=== PATIENT | female | born 1980 | race Caucasian/White ===

== ENCOUNTER 2021-04-15 06:26 | Emergency (ER) | payer OTHER ==
[2021-04-15] MEDS ORDERED: Sodium Chloride 0.9% 1,000 ML IV ONE (06:30)
[2021-04-15] MEDS ORDERED: Ondansetron 4 MG/2 ML SDV IVPUSH ONE (06:30)
--- NOTE | 2021-04-15 07:01 | EDM.PDOC ---
"ED HPI GENERAL MEDICAL PROBLEM - General Chief Complaint: Gastrointestinal Problem Stated Complaint: BLOATED STOMACH / VOMITING Time Seen by Provider: 04/15/21 07:01 Source of Information: Reports: Patient, Old Records, RN, RN Notes Reviewed History Limitations: Reports: No Limitations - History of Present Illness INITIAL COMMENTS - FREE TEXT/NARRATIVE: Pt presents to ER from home by POV with c/o onset of abdominal pain and cramping about 5 days ago. Pt initially thought that she was constipated, but as the pain increased she also thought it might be related to the endometriosis that was found to be on her bowel. Yesterday the pain increased and she began to have nausea and vomiting. Today her abdomen feels bloated and distended. Pt is worried about a bowel obstruction. She still hasn't had a BM for the past 5 days. Denies fever, chills, diarrhea, flank pain, or dysuria. Onset: Gradual Duration: Day(s): (5), Getting Worse Location: Reports: Abdomen Quality: Reports: Ache, Other (Cramping) Severity: Severe Improves with: Reports: None Worsens with: Reports: None Associated Symptoms: Reports: No Other Symptoms Abdomen Pain Score (Numeric/FACES): 5 - Related Data Allergies Allergy/AdvReac Type Severity Reaction Status Date / Time levofloxacin [From Levaquin] Allergy Vomiting Verified 04/15/21 06:54 Penicillins Allergy Anaphylactic Verified 04/15/21 06:54 Shock Home Meds: Home Meds . [No Known Home Meds] 04/15/21 [History] Past Medical History DERRICK HAND History: Reports: Endometriosis Social & Family History - Tobacco Use Tobacco Use Status *Q: Current Some Day Tobacco User Years of Tobacco use: 20 Packs/Tins Daily: 0.1 - Caffeine Use Caffeine Use: Reports: Coffee, Energy Drinks, Soda, Tea, Other - Recreational Drug Use Recreational Drug Use: No ED ROS GENERAL - Review of Systems Review Of Systems: Comprehensive ROS is negative, except as noted in HPI. ED EXAM, GI/ABD - Physical Exam Exam: See Below Exam Limited By: No Limitations General Appearance: Alert, WD/WN, Mild Distress (Due to pain), Active Emesis Eyes: Bilateral: Normal Appearance (No scleral icterus) Nose: Normal Inspection Throat/Mouth: Normal Lips, Normal Voice, No Airway Compromise, Other (Dry oral mucosa) Head: Atraumatic, Normocephalic Neck: Normal Inspection, Non-Tender, Full Range of Motion Respiratory/Chest: No Respiratory Distress, Lungs Clear, Normal Breath Sounds, No Accessory Muscle Use, Chest Non-Tender Cardiovascular: Normal Peripheral Pulses, Regular Rate, Rhythm, No Edema GI/Abdominal Exam: Normal Bowel Sounds, Soft, No Organomegaly, No Distention, Guarding, Tender (Generalized). No: Rigid, Rebound Back Exam: Normal Inspection Extremities: Normal Inspection Neurological: Alert, Oriented, No Motor/Sensory Deficits Psychiatric: Normal Mood, Tearful Skin Exam: Warm, Dry, Intact, Normal Color, No Rash Course - Vital Signs Last Recorded V/S: Last Vital Signs Temp 96.9 F 04/15/21 06:54 Pulse 95 04/15/21 06:54 Resp 12 04/15/21 06:54 BP 136/87 04/15/21 06:54 Pulse Ox 98 04/15/21 06:54 - Orders/Labs/Meds Orders: Active Orders 24 hr Category Date Time Status Gastrointestinal Tube Mgmt [RC] ASDIRECTED Care 04/15/21 08:28 Ordered Abdomen 1V Upright [CR] Stat Exams 04/15/21 08:28 Ordered Chest 1V Frontal [CR] Stat Exams 04/15/21 08:28 Ordered CRP [C-REACTIVE PROTEIN] [CHEM] Stat Lab 04/15/21 06:42 Received NG [Nasogastric Orogastric Tube Insertion] [OM.PC] Oth 04/15/21 08:28 Ordered Routine Labs: Laboratory Tests 04/15/21 04/15/21 04/15/21 Range/Units 06:42 06:42 06:42 WBC 9.4 (5.0-10.0) 10^3/uL RBC 5.00 (4.2-5.4) 10^6/uL Hgb 14.1 (12.0-16.0) g/dL Hct 42.6 (37.0-47.0) % MCV 85.2 (80-100) fL MCH 28.2 (27.0-34.0) pg MCHC 33.1 (33.0-35.0) g/dL Plt Count 372 (150-450) 10^3/uL Neut % (Auto) 71.9 (42.2-75.2) % Lymph % (Auto) 19.2 L (20.5-50.1) % Charlton % (Auto) 7.7 (2-8) % Eos % (Auto) 1.0 (1.0-3.0) % Baso % (Auto) 0.2 (0.0-1.0) % Sodium 139 (136-145) mmol/L Potassium 3.8 (3.5-5.1) mmol/L Chloride 102 (98-107) mmol/L Carbon Dioxide 27 (21-32) mmol/L Anion Gap 13.8 H (7-13) mEq/L BUN 7 (7-18) mg/dL Creatinine 0.91 (0.55-1.02) mg/dL Est Cr Clr Drug Dosing TNP Estimated GFR (MDRD) > 60 BUN/Creatinine Ratio 7.7 (No establ ref range) Glucose 111 H (70-99) mg/dL Lactic Acid 0.9 (0.4-2.0) mmol/L Calcium 8.8 (8.5-10.1) mg/dL Total Bilirubin 0.6 (0.2-1.0) mg/dL AST 13 L (15-37) U/L ALT 16 (14-59) U/L Alkaline Phosphatase 86 (46-116) U/L Total Protein 7.9 (6.4-8.2) g/dL Albumin 3.5 (3.4-5.0) g/dL Globulin 4.4 Albumin/Globulin Ratio 0.8 Amylase 37 (25-115) U/L Lipase 45 L (73-393) U/L HCG, Qual Urine Color (YELLOW) Urine Appearance (CLEAR) Urine pH (5.0-9.0) Ur Specific Blandon (1.005-1.030) Urine Protein (NEGATIVE) Urine Glucose (UA) (NEGATIVE) Urine Ketones (NEGATIVE) Urine Occult Blood (NEGATIVE) Urine Nitrite (NEGATIVE) Urine Bilirubin (NEGATIVE) Urine Urobilinogen (0.2-1.0) mg/dL Ur Leukocyte Esterase (NEGATIVE) 04/15/21 04/15/21 Range/Units 06:42 07:22 WBC (5.0-10.0) 10^3/uL RBC (4.2-5.4) 10^6/uL Hgb (12.0-16.0) g/dL Hct (37.0-47.0) % MCV (80-100) fL MCH (27.0-34.0) pg MCHC (33.0-35.0) g/dL Plt Count (150-450) 10^3/uL Neut % (Auto) (42.2-75.2) % Lymph % (Auto) (20.5-50.1) % Charlton % (Auto) (2-8) % Eos % (Auto) (1.0-3.0) % Baso % (Auto) (0.0-1.0) % Sodium (136-145) mmol/L Potassium (3.5-5.1) mmol/L Chloride (98-107) mmol/L Carbon Dioxide (21-32) mmol/L Anion Gap (7-13) mEq/L BUN (7-18) mg/dL Creatinine (0.55-1.02) mg/dL Est Cr Clr Drug Dosing Estimated GFR (MDRD) BUN/Creatinine Ratio (No establ ref range) Glucose (70-99) mg/dL Lactic Acid (0.4-2.0) mmol/L Calcium (8.5-10.1) mg/dL Total Bilirubin (0.2-1.0) mg/dL AST (15-37) U/L ALT (14-59) U/L Alkaline Phosphatase (46-116) U/L Total Protein (6.4-8.2) g/dL Albumin (3.4-5.0) g/dL Globulin Albumin/Globulin Ratio Amylase (25-115) U/L Lipase (73-393) U/L HCG, Qual Negative Urine Color Yellow (YELLOW) Urine Appearance Clear (CLEAR) Urine pH 8.5 (5.0-9.0) Ur Specific Blandon 1.020 (1.005-1.030) Urine Protein Negative (NEGATIVE) Urine Glucose (UA) Negative (NEGATIVE) Urine Ketones Trace H (NEGATIVE) Urine Occult Blood Negative (NEGATIVE) Urine Nitrite Negative (NEGATIVE) Urine Bilirubin Negative (NEGATIVE) Urine Urobilinogen 1.0 (0.2-1.0) mg/dL Ur Leukocyte Esterase Negative (NEGATIVE) Meds: Medications Discontinued Medications Generic Name Dose Route Start Last Admin Trade Name Freq PRN Reason Stop Dose Admin Hydromorphone HCl 0.5 mg 04/15/21 07:05 04/15/21 07:10 Hydromorphone 0.5 Mg/0.5 Ml Syringe IVPUSH 04/15/21 07:06 0.5 mg ONETIME ONE Administration Sodium Chloride 1,000 mls @ 999 mls/hr 04/15/21 06:30 04/15/21 06:48 Normal Saline IV 04/15/21 07:30 999 mls/hr .BOLUS ONE Administration Iopamidol 100 ml 04/15/21 07:41 04/15/21 07:57 Iopamidol 612 Mg/Ml 100 Ml Bottle IVPUSH 04/15/21 07:42 75 ml ONETIME ONE Administration Lidocaine HCl 15 ml 04/15/21 08:27 Lidocaine 2% Viscous Solution 15 Ml Cup PO 04/15/21 08:28 ONETIME ONE Midazolam HCl 2 mg 04/15/21 08:28 Midazolam 1 Mg/Ml 2 Ml Sdv IVPUSH 04/15/21 08:29 ONETIME ONE Ondansetron HCl 4 mg 04/15/21 06:30 04/15/21 06:48 Ondansetron 4 Mg/2 Ml Sdv IVPUSH 04/15/21 06:31 4 mg ONETIME ONE Administration - Radiology Interpretation Free Text/Narrative:: [facility] Final Radiology Report Call: [phone] assistance Online chat: [email or web address] Name: LASHAWN KEBEDE Age: 40Years F Date: 04/15/2021 SSN: -- : [id number] Study: CT ABDOMEN PELVIS W CONT Requesting Physician: JOCELYNN ESCAMILLA Images: [id number] Addl Studies: Provided Clinical History: Generalized abdominal pain, vomiting Contrast: With Contrast Medium: Isovue 300 Contrast Amount: 75 mL Contrast Method: Intravenous (IV) Page 1 of 2 PROCEDURE INFORMATION: Exam: CT Abdomen And Pelvis With Contrast Exam date and time: 04/15/2021 7:58 AM Age: 40 years old Clinical indication: Abdominal pain; Generalized; Additional info: Generalized abdominal pain, vomiting TECHNIQUE: Imaging protocol: Computed tomography of the abdomen and pelvis with contrast. Radiation optimization: All CT scans at this facility use at least one of these dose optimization techniques: automated exposure control; mA and/or kV adjustment per patient size (includes targeted exams where dose is matched to clinical indication); or iterative reconstruction. Contrast material: ISOVUE 300; Contrast volume: 75 ml; Contrast route: INTRA VENOUS (IV); COMPARISON: No relevant prior studies available. FINDINGS: Liver: A minor arterial phase perfusion defect of the hepatic left lobe medial segment is noted adjacent to the falciform ligament fissure, a normal variant. Gallbladder and bile ducts: Normal. No calcified stones. No ductal dilation. Pancreas: Normal. No ductal dilation. Spleen: Normal. No splenomegaly. Adrenal glands: Normal. No mass. Kidneys and ureters: Normal. No hydronephrosis. Stomach and bowel: Distended pelvic small bowel loops, with segmental wall thickening and dilatation (approximately 45 cm length, wall thickness measuring up to 6.6 mm, largest luminal caliber 3.9 cm), and caliber transition in the posterior upper right pelvis (series 2, images 67; series 4, image [id number]). Appendix: The vermiform appendix is normal. LASHAWN KEBEDE | Final Radiology Report CONFIDENTIALITY STATEMENT This report is intended only for use by the referring physician, and only in accordance with law. If you received this in error, call [phone]. Page 2 of 2 Intraperitoneal space: Nonspecific mild posterior pelvic peritoneal fluid. Vasculature: Unremarkable. No abdominal aortic aneurysm. Lymph nodes: No enlarged lymph nodes. Urinary bladder: Unremarkable as visualized. Reproductive: Unremarkable as visualized. Bones/joints: Unremarkable. No acute fracture. Soft tissues: Unremarkable. IMPRESSION: 1. Findings consistent with inflammatory small bowel disease, with distal partial small bowel obstruction. Clinical correlation is recommended. 2. Nonspecific mild posterior pelvic peritoneal fluid. Thank you for allowing us to participate in the care of your patient. Dictated and Authenticated by: Alireza Araiza MD 04/15/2021 8:09 AM Central Time ([place] & [place]) - Re-Assessments/Exams Free Text/Narrative Re-Assessment/Exam: 04/15/21 08:34 NG placed by RN. Departure - Departure Time of Disposition: 08:34 (admitted to Dr. Johnson) Disposition: Admitted As Inpatient 66 Condition: Fair Clinical Impression: Small bowel obstruction, partial, Endometriosis of small intestine - Discharge Information *PRESCRIPTION DRUG MONITORING PROGRAM REVIEWED*: Not Applicable *COPY OF PRESCRIPTION DRUG MONITORING REPORT IN PATIENT MAR[place]: Not Applicable Forms: ED Department Discharge Sepsis Event Note (ED) - Evaluation Sepsis Screening Result: No Definite Risk - Focused Exam Vital Signs: Vital Signs Temp Pulse Resp BP Pulse Ox 04/15/21 06:54 96.9 F 95 12 136/87 98 - My Orders Last 24 Hours: My Active Orders 04/15/21 06:42 CRP [C-REACTIVE PROTEIN] [CHEM] Stat 04/15/21 08:28 Gastrointestinal Tube Mgmt [RC] ASDIRECTED Abdomen 1V Upright [CR] Stat Chest 1V Frontal [CR] Stat NG [Nasogastric Orogastric Tube Insertion] [OM.PC] Routine - Assessment/Plan Last 24 Hours: My Active Orders 04/15/21 06:42 CRP [C-REACTIVE PROTEIN] [CHEM] Stat 04/15/21 08:28 Gastrointestinal Tube Mgmt [RC] ASDIRECTED Abdomen 1V Upright [CR] Stat Chest 1V Frontal [CR] Stat NG [Nasogastric Orogastric Tube Insertion] [OM.PC] Routine"
[2021-04-15] MEDS ORDERED: HYDROmorphone 0.5 MG/0.5 ML Syringe IVPUSH ONE (07:05)
[2021-04-15] MEDS ORDERED: Iopamidol 612 MG/ML 100 ML Bottle IVPUSH ONE (07:41)
[2021-04-15] MEDS ORDERED: Lidocaine 2% Viscous Solution 15 ML Cup PO ONE (08:27)
[2021-04-15] MEDS ORDERED: Midazolam 1 MG/ML 2 ML SDV IVPUSH ONE (08:28)
--- NOTE | 2021-04-15 09:30 | CR ---
PROCEDURE INFORMATION: Exam: XR Chest Exam date and time: 04/15/2021 8:59 AM Age: 40 years old Clinical indication: Device placement; Ng tube; Additional info: Id if the tube is coiled TECHNIQUE: Imaging protocol: XR of the chest. Views: Frontal portable view of the chest. The lung apices are slightly bilaterally. COMPARISON: No relevant prior studies available. FINDINGS: Tubes, catheters and devices: The nasogastric tube enters the stomach with the tip in the lower gastric body. No coiling or kinking of the tube is identified as visualized. Lungs: Moderate pulmonary hypoexpansion. The lungs are otherwise clear bilaterally. The pulmonary vasculature is normal. Pleural spaces: No pleural effusion. No pneumothorax. Heart/Mediastinum: The heart is normal in size and contour. Bones/joints: No acute abnormality identified. Organs: Excreted contrast is present in the bilateral renal collecting systems IMPRESSION: 1. Moderate pulmonary hypoexpansion. 2. No acute cardiopulmonary abnormality identified. 3. Nasogastric tube placement as above.
== END 2021-04-15 10:32 | disposition critical access hospital (66) ==
LOC: DL.ED 06:26
DX: K56.600 Partial intestinal obstruction, unspecified as to cause (principal); N80.5 Endometriosis of intestine; Z72.0 Tobacco use; Z88.1 Allergy status to other antibiotic agents; Z88.0 Allergy status to penicillin
CPT/HCPCS: 36415; 71045; 74177; 80053; 81003; 82150; 83605; 83690; 84703; 85025; 86140; 96374; 96375; 99284; 99284-25; A9270-GY; J1170; J2250; J2405; J7030; Q9967; U0002

== ENCOUNTER 2021-04-15 10:22 | Inpatient (IN) | payer OTHER ==
[2021-04-15 07:07] LABS: ANION GAP 13.8 mEq/L (7-13); CHLORIDE,CL 102 mmol/L (98-107); SODIUM,NA 139 mmol/L (136-145)
--- NOTE | 2021-04-15 08:10 | CT ---
PROCEDURE INFORMATION: Exam: CT Abdomen And Pelvis With Contrast Exam date and time: 04/15/2021 7:58 AM Age: 40 years old Clinical indication: Abdominal pain; Generalized; Additional info: Generalized abdominal pain, vomiting TECHNIQUE: Imaging protocol: Computed tomography of the abdomen and pelvis with contrast. Radiation optimization: All CT scans at this facility use at least one of these dose optimization techniques: automated exposure control; mA and/or kV adjustment per patient size (includes targeted exams where dose is matched to clinical indication); or iterative reconstruction. Contrast material: ISOVUE 300; Contrast volume: 75 ml; Contrast route: INTRAVENOUS (IV); COMPARISON: No relevant prior studies available. FINDINGS: Liver: A minor arterial phase perfusion defect of the hepatic left lobe medial segment is noted adjacent to the falciform ligament fissure, a normal variant. Gallbladder and bile ducts: Normal. No calcified stones. No ductal dilation. Pancreas: Normal. No ductal dilation. Spleen: Normal. No splenomegaly. Adrenal glands: Normal. No mass. Kidneys and ureters: Normal. No hydronephrosis. Stomach and bowel: Distended pelvic small bowel loops, with segmental wall thickening and dilatation (approximately 45 cm length, wall thickness measuring up to 6.6 mm, largest luminal caliber 3.9 cm), and caliber transition in the posterior upper right pelvis (series 2, images 67; series 4, image [id number]). Appendix: The vermiform appendix is normal. Intraperitoneal space: Nonspecific mild posterior pelvic peritoneal fluid. Vasculature: Unremarkable. No abdominal aortic aneurysm. Lymph nodes: No enlarged lymph nodes. Urinary bladder: Unremarkable as visualized. Reproductive: Unremarkable as visualized. Bones/joints: Unremarkable. No acute fracture. Soft tissues: Unremarkable. IMPRESSION: 1. Findings consistent with inflammatory small bowel disease, with distal partial small bowel obstruction. Clinical correlation is recommended. 2. Nonspecific mild posterior pelvic peritoneal fluid.
[2021-04-15] MEDS ORDERED: Acetaminophen 325 MG Tab NGTUBE PRN (10:24)
[2021-04-15] MEDS ORDERED: Sodium Chloride 0.9% 10 ML Syringe FLUSH PRN (10:24)
[2021-04-15] MEDS ORDERED: Docusate Sodium 100 MG Cap SCH (10:30)
--- NOTE | 2021-04-15 10:32 | PCM.SN.2 ---
- Free Text/Narrative Note: START OF DOCTOR EMAMIS HISTORY AND PHYSICAL / CONSULTATION NOTE Chief Complaint: Abdominal pain History of Present Illness: The patient is a 40-year-old female who presents to complain of abdominal pain. She states abdominal pain started last night 40 hours prior to presentation to the emergency department. She states it was of gradual onset. She states in last year she had numerous visits to the emergency department for abdominal pain chiefly due to her history of endometriosis but never has had an episode of small bowel torsion. She states that her last bowel movement was on the morning of hospitalization at approximately 5:30 AM and it was small in quantity. She denies diarrhea, hematochezia, melena. She denies frequent NSAID use. She denies opiate use. She admits to onset of nausea and episodes of emesis. She presents for further evaluation Surgical History: Right hip surgery, D&C, bilateral myringotomy tube placement with subsequent removal, bilateral LASEK eye surgery Family History: Cancer, throat, diabetes, coronary artery disease, hypertension Social History: Tobacco: Never Alcohol: Occasional Caffeine: Coffee Drugs: Never Allergies: Penicillin, Levaquin Code Status: Full Pertinent Laboratory Results / Pertinent Radiology Results / Pertinent Diagnos tic Results / Pertinent Vital Signs: Blood pressure 136/87, pulse 95, respiration 12, temperature 96.9 degrees, 98% room air Physical Examination: General: -Alert -No acute distress -No dyspnea -No tachypnea Head: -Atraumatic -Normocephalic Eyes: -Pupils equally round and reactive to light and accommodation -Extraocular muscles intact Neurological: -Cranial nerves II-XII intact Neck: -No jugular venous distention -No thyromegaly -No cervical lymphadenopathy Heart: -Regular rate -Regular rhythm -No murmurs -No gallops -No rubs Lungs: -No wheeze -No rhonchi -No rales Abdomen: -Hypoactive bowel sounds in all four quadrants -No rebound -No guarding -Supraumbilical tenderness present Extremities: -2/4 pulse in all four extremities -No clubbing -No cyanosis -No edema -No calf tenderness present bilaterally -Negative Homans sign bilaterally Musculoskeletal: -5/5 bilateral upper extremity strength -5/5 bilateral lower extremity strength -Sensorium of bilateral upper extremities are equal and intact -Sensorium of bilateral lower extremities are equal and intact Additional Details / Additional Findings / Exceptions / Miscellaneous: Assessment / Plan: Distal partial small bowel obstruction. NG tube placed in the emergency department which will be set to low intermittent suction. NPO. IV normal saline 100 mL/h. Colace 200 mg NG twice daily plus senna 17.2 mg NG twice daily with NG tube being clamped for 45 minutes after administration Infectious small bowel disease per CT scan. CRP minimally elevated. ESR pending. Flagyl 500 mg IV every 6 hours Endometriosis. Outpatient follow-up with obstetrics/gynecology upon discharge Obesity. Patient counseled regarding lifestyle modification DVT prophylaxis. Bilateral SCD Disposition: Anticipate discharge in 48 to 72 hours END OF DOCTOR EMAMIS HISTORY AND PHYSICAL / CONSULTATION NOTE
[2021-04-15] MEDS: Ondansetron 4 MG/2 ML SDV IVPUSH PRN (11:09)
[2021-04-15] MEDS: metroNIDAZOLE/Normal Saline 500 MG in Premix Bag 100 BAG IV SCH ×2 (11:10→17:09)
[2021-04-15] MEDS: Sodium Chloride 0.9% 1,000 ML IV SCH ×2 (11:15→22:55)
[2021-04-15] MEDS: DOCUSATE SODIUM NGTUBE SCH ×2 (13:35→21:41)
[2021-04-15] MEDS: Benzocaine/Cetylpyridinium/Menthol Lozenge MUCMEM PRN ×2 (16:14→22:53)
[2021-04-16] MEDS: metroNIDAZOLE/Normal Saline 500 MG in Premix Bag 100 BAG IV SCH ×2 (00:08→05:42)
--- NOTE | 2021-04-16 08:10 | PCM.SN.2 ---
- Free Text/Narrative Note: START OF DOCTOR EMAMIS PROGRESS NOTE Subjective: The patient Andie that her abdominal pain has greatly improved. She currently rates her abdominal pain is 2 out of 10 in the periumbilical area. She states that she had a small bowel movement on April 15, 2021 and a medium-sized bowel movement on the morning of April 16, 2021. Right the patient has fever, rigors, nausea, vomiting, cough, wheeze, dyspnea. I explained to the patient her current medical condition and plan of care I have answered all of her questions Objective: General: -Alert -No acute distress -No dyspnea -No tachypnea -Obese Heart: -Regular rate -Regular rhythm -No murmurs -No gallops -No rubs Lungs: -No wheeze -No rhonchi -No rales Abdomen: -Normal bowel sounds in all four quadrants -No rebound -No guarding -No tenderness Extremities: -2/4 pulse in all four extremities -No clubbing -No cyanosis -No edema Additional Details / Additional Findings / Exceptions / Miscellaneous: Pertinent Laboratory Results / Pertinent Radiology Results / Pertinent Diagnostic Results / Pertinent Vital Signs: Vital signs stable Assessment / Plan: Distal partial small bowel obstruction. NG tube placed in the emergency department which will be set to low intermittent suction. NPO. IV normal saline 100 mL/h. Colace 200 mg NG twice daily plus senna 17.2 mg NG twice daily with NG tube being clamped for 45 minutes after administration Infectious small bowel disease per CT scan. CRP minimally elevated. ESR pending. Flagyl 500 mg IV every 6 hours Endometriosis. Outpatient follow-up with obstetrics/gynecology upon discharge Obesity. Patient counseled regarding lifestyle modification DVT prophylaxis. Bilateral SCD Disposition: Anticipate discharge in 24 to 72 hours END OF DOCTOR EMAMIS PROGRESS NOTE
[2021-04-16] MEDS: DOCUSATE SODIUM NGTUBE SCH ×2 (08:58→21:12)
[2021-04-16] MEDS: Sodium Chloride 0.9% 1,000 ML IV SCH ×2 (11:19→23:29)
[2021-04-16] MEDS: metroNIDAZOLE/Normal Saline 500 MG in Premix Bag 1 BAG IV SCH ×3 (12:26→23:32)
[2021-04-16] MEDS: Benzocaine/Cetylpyridinium/Menthol Lozenge MUCMEM PRN (12:35)
[2021-04-16] MEDS: Ondansetron 4 MG/2 ML SDV IVPUSH PRN (16:46)
[2021-04-17] MEDS: metroNIDAZOLE/Normal Saline 500 MG in Premix Bag 1 BAG IV SCH ×3 (05:59→18:40)
--- NOTE | 2021-04-17 08:07 | PCM.SN.2 ---
- Free Text/Narrative Note: START OF DOCTOR ANTONIO PROGRESS NOTE Subjective: The patient Andie that her abdominal pain has pretty much resolved. She states that she occasionally has a "flutter "sensation in her right lower quadrant. Overnight she denies fever, rigors, nausea, vomiting, cough, wheeze, dyspnea. I explained to the patient her current medical condition and plan of care and I have answered all of her questions Objective: General: -Alert -No acute distress -No dyspnea -No tachypnea -Obese Heart: -Regular rate -Regular rhythm -No murmurs -No gallops -No rubs Lungs: -No wheeze -No rhonchi -No rales Abdomen: -Normal bowel sounds in all four quadrants -No rebound -No guarding -No tenderness Extremities: -2/4 pulse in all four extremities -No clubbing -No cyanosis -No edema Additional Details / Additional Findings / Exceptions / Miscellaneous: Pertinent Laboratory Results / Pertinent Radiology Results / Pertinent Diagnostic Results / Pertinent Vital Signs: Vital signs stable Assessment / Plan: Distal partial small bowel obstruction. NG tube placed in the emergency department which will be set to low intermittent suction. NPO. IV normal saline 100 mL/h. Colace 200 mg NG twice daily plus senna 17.2 mg NG twice daily with NG tube being clamped for 45 minutes after administration Infectious small bowel disease per CT scan. CRP minimally elevated. ESR within normal limits. Flagyl 500 mg IV every 6 hours Endometriosis. Outpatient follow-up with obstetrics/gynecology upon discharge Obesity. Patient counseled regarding lifestyle modification DVT prophylaxis. Bilateral SCD Disposition: I will check with the nursing staff regarding nasogastric tube output. KUB pending. If NG tube output is low and if KUB no longer demonstrates obstruction, will remove NG tube, start the patient on clear liquid dietadvance as tolerated, and she may be a candidate for discharge on this day of April 17, 2021 END OF DOCTOR ANTONIO PROGRESS NOTE
--- NOTE | 2021-04-17 08:55 | CR ---
PROCEDURE INFORMATION: Exam: XR Abdomen Exam date and time: 04/17/2021 8:12 AM Age: 40 years old Clinical indication: Other: Follow up small bowel obstruction; Additional info: Pain, ng tube TECHNIQUE: Imaging protocol: XR of the abdomen. Views: Frontal supine view of the abdomen. 1 View. COMPARISON: CT Abdomen Pelvis w Cont 04/15/2021 7:58 AM FINDINGS: Tubes, catheters and devices: Nasogastric tube tip in the left upper quadrant, within the stomach body. Lungs: Lung bases are clear. Gastrointestinal tract: Nonobstructive bowel gas pattern. Intraperitoneal space: Haziness at the level of the pelvis, in keeping with previously identified mild pelvic ascites. There is no free intraperitoneal air. Bones/joints: No acute skeletal abnormality or aggressive osseous lesion. Other findings: Concern for wall thickening at several small bowel loops at the level of the pelvis, in keeping with prior diagnosis of distal ileitis. IMPRESSION: 1. Concern for persistent and known distal ileitis and mild pelvic ascites. 2. No definitive evidence of bowel obstruction or bowel perforation. 3. Nasogastric tube tip in the left upper quadrant, within the stomach body.
[2021-04-17] MEDS ORDERED: Doxycycline 100 MG in Sodium Chloride 0.9% 100 ML IV SCH (10:00)
[2021-04-17] MEDS: DOCUSATE SODIUM NGTUBE SCH (10:27)
[2021-04-17] MEDS: Sodium Chloride 0.9% 1,000 ML IV SCH (13:28)
--- NOTE | 2021-04-17 18:36 | PCM.SN.2 ---
- Free Text/Narrative Note: START OF DOCTOR EMAMIS DISCHARGE SUMMARY Date of Admission: April 15, 2021 Date of Discharge: 6:34 PM on April 17, 2021 Primary Diagnosis: Distal partial small bowel obstruction, resolved Secondary Diagnosis: Ileitis Endometriosis Obesity Consultations: None Condition on Discharge: Stable Disposition: The patient will be advised to follow-up with obstetrics/gynecology as directed for her history of endometriosis She is advised to follow-up with surgery as as scheduled whether it is with obstetrics/gynecology or general surgery who will be performing Discharge Medications: Flagyl 500 mg p.o. every 6 hours. Quantity 28. 0 refills Doxycycline 100 mg p.o. twice daily. Quantity 14. 0 refills Docusate/senna: 2 tabs p.o. twice daily. Quantity 20. 0 refills END OF DOCTOR EMAMIS DISCHARGE SUMMARY
== END 2021-04-17 19:56 | disposition home or self-care (01) | DRG 390 ==
LOC: DL.MS 10:22
PROVIDERS: ADMIT Internal Medicine; ATTEND Internal Medicine
DX: K56.600 Partial intestinal obstruction, unspecified as to cause (principal); K52.9 Noninfective gastroenteritis and colitis, unspecified; N80.9 Endometriosis, unspecified; E66.9 Obesity, unspecified; Z20.822 Contact with and (suspected) exposure to COVID-19; Z28.82 Immunization not carried out because of caregiver refusal; Z68.28 Body mass index [BMI] 28.0-28.9, adult
CPT/HCPCS: 36415; 74018; 74177; 80053; 81003; 82150; 83605; 83690; 83735; 84439; 84443; 84703; 85025; 85651; 86140; A9270-GY; J2405; J3490; J7030; U0002